=== PATIENT | female | born 1940 | race Caucasian/White ===

== ENCOUNTER 2017-05-07 15:47 | Outpatient (CLI) | payer MEDICARE, BC | END 2017-05-07 15:48 | disposition home or self-care (01) | LOC: BICMAMMO 15:47 | PROVIDERS: ATTEND Family Medicine | DX: Z12.31 Encounter for screening mammogram for malignant neoplasm of breast (principal) | CPT/HCPCS: 77063; 77067 ==

== ENCOUNTER 2017-07-24 01:28 | Observation (INO) | payer MEDICARE, BC ==
[2017-07-24] MEDS ORDERED: Nitroglycerin 0.4 MG TAB (25 Tab Bottle) ONE ×3 (01:46→01:48)
[2017-07-24] MEDS ORDERED: Nitroglycerin 2% Ointment 1 INCH/1 GM Packet ONE (01:46)
[2017-07-24 01:58] LABS: #Eosinphils 0.1 thou/uL (0.0-0.7); #Lymphocytes 2.4 thou/uL (1.20-3.40); #Monocytes 0.6 thou/uL (0.11-0.59); #Neutrophils 7.3 thou/uL (1.40-6.50); %Basophils 0.3 % (0.0-1.0); %Eosinophils 1.3 % (0.0-10.0); %Monocytes 5.6 % (0.0-10.0); %Neutrophils 69.8 % (42.0-75.0); Hemoglobin 14.6 g/dL (12.0-16.0); Mean Corpuscular HGB CONC 33.5 g/dL (32.0-36.0); Mean Corpuscular Hemoglobin 31.5 pg (27.0-31.0); Mean Corpuscular Volume 94.1 fl (81.0-99.0); Mean Platelet Volume 7.1 fL (7.4-10.4); Platelet Count 228 thou/uL (130-400); RBC Distribution Width 11.7 % (11.5-14.5); Red Blood Cell (RBC) Count 4.63 mill/uL (4.20-5.40); White Blood Cell (WBC) Count 10.4 thou/uL (4.8-10.8)
[2017-07-24 02:17] LABS: ALT (SGPT) 16 U/L (8-55); AST (SGOT) 25 U/L (5-34); Albumin 4.5 g/dL (3.4-4.8); Alkaline Phosphatase 56 U/L (40-150); Anion Gap 13 mmol/L (10-20); BUN (Urea Nitrogen) 23 mg/dL (9.8-20.1); Bilirubin, Total 0.8 mg/dL (0.2-1.2); CK (CPK) 106 U/L (29-168); Calc. Creatinine Clearance 0 mL/min (70-130); Calcium 10.2 mg/dL (7.8-10.44); Carbon Dioxide 25 mmol/L (23-31); Chloride 102 mmol/L (98-107); Estimated GFR-MDRD 58; Globulin 3.3 g/dL (2.4-3.5); Glucose 111 mg/dL (83-110); Lipase 56 U/L (8-78); Potassium 4.1 mmol/L (3.5-5.1); Protein, Total 7.8 g/dL (6.0-8.3); Sodium 136 mmol/L (136-145)
[2017-07-24 02:20] LABS: CKMB 2.6 ng/mL (0-6.6); Troponin I Less than 0.010 ng/mL (< 0.028)
[2017-07-24] MEDS ORDERED: Acetaminophen 325 MG TAB PO PRN (03:21)
[2017-07-24] MEDS ORDERED: hydrALAZINE 20 MG/ML VIAL SLOW IVP PRN ×2 (03:22→03:50)
[2017-07-24 03:50] VITALS: TEMP 98
[2017-07-24] MEDS ORDERED: Ondansetron HCl/PF 4 MG/2 ML Vial IVP PRN (03:50)
[2017-07-24] MEDS ORDERED: cloNIDine 0.1 MG TAB PO PRN (03:50)
[2017-07-24] MEDS ORDERED: Acetaminophen 500 MG TAB PO PRN (03:50)
[2017-07-24] MEDS ORDERED: Ondansetron ODT 4 MG TAB PO PRN (03:50)
[2017-07-24 05:37] LABS: Troponin I Less than 0.010 ng/mL (< 0.028)
--- NOTE | 2017-07-24 05:58 | HP ---
DATE OF ADMISSION: 07/24/2017 PRIMARY CARE PROVIDER: Wilber Washington M.D. CHIEF COMPLAINT: Chest pain and high blood pressure. HISTORY OF PRESENT ILLNESS: This is a 76-year-old female who presents to [facility] complaining of elevated blood pressure with readings at home in the 200/115. The pa columba states she took her regular chronic blood pressure regimen, but noticed increased chest pressur e and elevated blood pressure readings on her home monitor. The patient admits to increase stressors , taking care of an elderly [id number] as well as assisting her brother who recently was placed on dialysis. The patient admits to recent cold and allergy type symptoms taking Kaylie as well as her nasal steroid. The patient denied any specific fever, chills, or exposure history. The patient den ied any lower extremity edema, jaw or left arm discomfort. The patient does states she underwent car diac catheterization within the last 2 years and was told this was negative. The patient states she took 2 aspirin at approximately 2100 on 07/23/2017 before presenting to the emergency department. Th e patient initially rated the pain as 3/10, currently 1/10. The patient was treated in the emergency room with IV metoprolol, sublingual nitroglycerin and transdermal nitroglycerin. Screening metaboli c survey was essentially negative and the patient was referred to the observation unit for further ev aluation. PAST MEDICAL HISTORY: 1. Hypertension. 2. Hyperlipidemia. 3. Gastroesophageal reflux disease. 4. Osteoarthritis. 5. Allergic rhinitis. 6. History of psoriasis. PAST SURGICAL HISTORY: 1. Status post hysterectomy. 2. Status post appendectomy. 3. Status post cardiac catheterization x3 negative. 4. Status post colonoscopy. 5. Status post right total knee arthroplasty in 2010. 6. Status post left total knee arthroplasty. 7. Status post cataract removal. 8. Status post right shoulder repair. CURRENT MEDICATIONS: 1. Aspirin 81 mg p.o. every other day. 2. Vitamin D3 1000 units p.o. daily. 3. Premarin 0.3 mg p.o. daily. 4. Zetia 10 mg p.o. daily. 5. Gabapentin 300 mg p.o. at bedtime. 6. Losartan 25 mg p.o. q.a.m. 7. Coenzyme Q10 100 mg p.o. daily. 8. Protonix 40 mg p.o. q.a.m. ALLERGIES: CODEINE and IODINE CONTRAST. FAMILY HISTORY: Father after complications of emphysema. Mother after complicatio ns of myocardial infarction and CVA. SOCIAL HISTORY: The patient is , resides in [place], [place]. Retired. No current alc ohol, tobacco or illicit drug use. Functional of all activities of daily living. REVIEW OF SYSTEMS: The following complete review of systems was negative, unless otherwise mentioned in the HPI or below: Constitutional: Weight loss or gain, ability to conduct usual activities. Sk in: Rash, itching. Eyes: Double vision, pain. ENT/Mouth: Nose bleeding, neck stiffness, pain, ten derness. Cardiovascular: Palpitations, dyspnea on exertion, orthopnea. Respiratory: Shortness of breath, wheezing, cough, hemoptysis, fever or night sweats. Gastrointestinal: Poor appetite, abdomi nal pain, heartburn, nausea, vomiting, constipation, or diarrhea. Genitourinary: Urgency, frequency , dysuria, nocturia. Musculoskeletal: Pain, swelling. Neurologic/Psychiatric: Anxiety, depression . Allergy/Immunologic: Skin rash, bleeding tendency. Otherwise negative except as stated per HPI. PHYSICAL EXAMINATION: VITAL SIGNS: On admission, blood pressure 203/119, pulse 85, respiratory rate 19, temperature 97.4 d egrees Fahrenheit, O2 saturation 98% on room air. GENERAL APPEARANCE: This is a 76-year-old female, alert and oriented x3, pleasant, convers ant, smiling, in no acute distress. HEENT: Pupils are equal, round, and reactive to light and accommodation. Extraocular muscles are in tact. No scleral icterus, no conjunctival injection. Nares patent. OP is clear. Teeth in good rep air. NECK: Supple, no cervical adenopathy, no thyromegaly, no carotid bruits, no JVD appreciated. Cervic al spine with full active and passive range of motion. No meningeal signs appreciated. CHEST: Lungs are clear to auscultation bilaterally. CARDIOVASCULAR: S1, S2, without noted murmur, rub or gallop. ABDOMEN: Rounded, soft, nontender, nondistended. Bowel sounds are positive in all four quadrants. There is no hepatosplenomegaly, no abdominal bruits, no rebound or guarding appreciated. EXTREMITIES: Warm and dry with fair turgor. No clubbing, cyanosis or asymmetric edema appreciated. Pulses palpable distally at the dorsalis pedis, posterior tibial, and popliteal arteries bilaterally . Capillary refill less than 2 seconds. NEUROLOGIC: Cranial nerves II-XII are grossly intact. No focal or lateralizing signs appreciated. PERTINENT LABORATORY AND X-RAY FINDINGS: Sodium 136, potassium 4.1, chloride 102, CO2 of 25, BUN 23, creatinine 0.94, estimated GFR of 58, glucose 111, calcium 10.2. LFTs within normal limits. BNP 42 , troponin I negative x1. Lipase 56. CBC within normal limits. Portable chest x-ray dated 07/25/19 18 by my interpretation shows no acute cardiopulmonary process. EKG dated by my interpretation shows sinus mechanism with heart rate in the 80s. Normal R-wave progression noted in the precordial leads . Left axis deviation. Isolated T-wave changes in V2 and V3. ASSESSMENT AND PLAN: 1. Hypertensive urgency. The patient was placed in observation status on telemetry unit. We will r esume home antihypertensive regimen and monitor serial blood pressure trend. Hydralazine and clonidi ne p.r.n. systolic greater than or equal to 170. The patient may need additional titration of her an tihypertensive regimen on an ongoing basis after discharge. 2. Chest pain. Suspect secondarily to hypertensive urgency. Continue serial troponin I q.3 hours x 2. The patient with 3 prior cardiac catheterizations all negative. We will not pursue further stres s testing. Continue aspirin 325 mg daily. 3. Chronic kidney disease stage 3. Avoid nephrotoxic agents and contrast media. Repeat creatinine in the a.m. 4. Gastroesophageal reflux. Continue Protonix 40 mg p.o. daily. 5. Prophylaxis. Sequential compression devices while in bed. Protonix 40 mg p.o. daily. 6. Code status is FULL. Surrogate medical decision maker is the patient's daughter.
[2017-07-24] MEDS ORDERED: Nitroglycerin 2% Ointment 1 INCH/1 GM Packet TOP SCH (06:00)
[2017-07-24 07:54] LABS: Troponin I Less than 0.010 ng/mL (< 0.028)
--- NOTE | 2017-07-24 07:57 | RAD ---
CHEST 1 VIEW: Date: 07/24/17 HISTORY: Chest pain. COMPARISON: Chest radiograph dated 07/30/16. FINDINGS: Heart size upper limits of normal. No focal air space consolidation, pneumothorax, or effusion. There is a right humeral tendon suture anchor, which is displaced, in the subacromial space. IMPRESSION: 1. No acute intrathoracic abnormality. 2. Displaced right humeral tendon suture anchor indicating hardware failure. Orthopedic follow-up re commended. POS: [facility]
[2017-07-24 08:12] VITALS: BP 138/76
[2017-07-24] MEDS ORDERED: Famotidine 20 MG TAB PO SCH (09:00)
[2017-07-24] MEDS ORDERED: Losartan 25 MG TAB PO SCH (09:00)
[2017-07-24] MEDS ORDERED: ASCORBIC ACID PO SCH (09:00)
[2017-07-24] MEDS ORDERED: Aspirin 325 MG TAB PO SCH ×2 (09:00)
[2017-07-24] MEDS ORDERED: Calcium Carbonate + Vit D 1 TAB PO SCH (09:00)
[2017-07-24] MEDS ORDERED: Lactinex Tablet PO SCH (09:00)
[2017-07-24] MEDS ORDERED: Ubidecarenone 50 MG CAP PO SCH (09:00)
[2017-07-24] MEDS ORDERED: Estrogens, Conjugated 0.3 MG TAB PO SCH (09:00)
[2017-07-24] MEDS ORDERED: CRANBERRY PO SCH (09:00)
[2017-07-24] MEDS ORDERED: Ezetimibe 10 MG TAB PO SCH (09:00)
[2017-07-24] MEDS ORDERED: ALPRAZolam 0.25 MG TAB PO SCH (10:45)
--- NOTE | 2017-07-24 12:50 | DIS ---
CONDITION AT THE TIME OF DISCHARGE: Stable and improved. PRIMARY CARE PHYSICIAN: Dr. Wilber Washington DISCHARGE DIAGNOSES: 1. Hypertensive urgency, now resolved. 2. Anxiety. 3. History of hypertension. 4. Dyslipidemia. 5. Gastroesophageal reflux disease. 6. Osteoarthritis. 7. History of psoriasis. DISCHARGE MEDICATIONS: Remain the same as admission medication. Please see admission history for de tails. No medication changes were needed at this time. Blood pressure medications remained the same with losartan 25 mg daily. PROCEDURES DONE IN THE HOSPITAL: Chest x-ray which is negative for any fluid or effusion or infiltra te. HISTORY OF PRESENT ILLNESS: Ms. Woody is a pleasant 76-year-old female with past medical history of hypertension who was admitted overnight for complaints of high blood pressure readings in 200 systol ic and 100-teens diastolic at home. She was otherwise stable on a small dose of Cozaar at home. She did report that she was under a lot of stress lately, but otherwise her blood pressure is very well controlled. She had some associated chest discomfort with this blood pressure being so high. She wa s evaluated and was admitted overnight for observation. Please see admission history and physical fo r further details. HOSPITAL COURSE: The patient's blood pressure actually did very well without any additional interven tions. She was restarted on her Cozaar and her blood pressure was within normal limits throughout th e rest of her hospitalization. Serial cardiac enzymes were done and were unremarkable. The patient follows up with Dr. Robledo as an outpatient and has a normal cardiac catheterization a few years ago. At this time, most of her symptoms are stemming from extreme anxiety and stress. She will be start ed on a Xanax trial as needed basis and will be followed up by primary care physician to see if that helps with her day to day symptoms. She is encouraged to keep a blood pressure log at home as well. At this time, there is no further need for continued hospital stay and she is discharged back home. She was seen and examined prior to discharge and is feeding very good and has no new complaints. PHYSICAL EXAMINATION: (This morning). VITAL SIGNS: Temperature 98, heart rate 72, respirations 20, saturating 93% on room air, blood press ure 138/76. GENERAL: No acute distress. She does appear somewhat anxious, otherwise awake, alert, oriented x3. CHEST: Clear to auscultation without any wheezing, rales or rhonchi. Rhythm is regular without any murmur, rubs or gallops. NEUROLOGICAL: Nonfocal. She is instructed to follow with primary care physician in 5-7 days.
[2017-07-24] MEDS ORDERED: Gabapentin 300 MG CAP PO SCH (21:00)
== END 2017-07-24 12:01 | disposition home or self-care (01) ==
LOC: ERS 01:28 → 2SW 02:23
PROVIDERS: ADMIT Family Medicine; ATTEND Family Medicine
DX: I16.0 Hypertensive urgency (principal); R07.9 Chest pain, unspecified; F41.9 Anxiety disorder, unspecified; I10 Essential (primary) hypertension; E78.5 Hyperlipidemia, unspecified; K21.9 Gastro-esophageal reflux disease without esophagitis; M19.90 Unspecified osteoarthritis, unspecified site; L40.9 Psoriasis, unspecified; J30.9 Allergic rhinitis, unspecified; Z88.2 Allergy status to sulfonamides; Z88.5 Allergy status to narcotic agent; Z91.041 Radiographic dye allergy status; Z79.82 Long term (current) use of aspirin; Z79.899 Other long term (current) drug therapy; Z98.890 Other specified postprocedural states; Z82.49 Family history of ischemic heart disease and other diseases of the circulatory system
CPT/HCPCS: 71045; 80053; 82550; 82553; 83690; 83880; 84484 ×2; 85025; 93005; 94760; 99284; G0378; 36415; 96360

== ENCOUNTER 2018-05-19 09:29 | Outpatient (CLI) | payer MEDICARE, BC | END 2018-05-19 09:30 | disposition home or self-care (01) | LOC: BICMAMMO 09:29 | PROVIDERS: ATTEND Family Medicine | DX: Z12.31 Encounter for screening mammogram for malignant neoplasm of breast (principal); R92.1 Mammographic calcification found on diagnostic imaging of breast | CPT/HCPCS: 77063; 77067 ==

== ENCOUNTER 2018-09-27 03:21 | Observation (INO) | payer MEDICARE, BC ==
[2018-09-27 04:11] LABS: #Eosinphils 0.2 thou/uL (0.0-0.7); #Lymphocytes 1.9 thou/uL (1.20-3.40); #Monocytes 0.6 thou/uL (0.11-0.59); #Neutrophils 4.2 thou/uL (1.40-6.50); %Basophils 0.6 % (0.0-1.0); %Eosinophils 3.1 % (0.0-10.0); %Lymphocytes 27.9 % (21.0-51.0); %Neutrophils 60.5 % (42.0-75.0); Hemoglobin 13.9 g/dL (12.0-16.0); Mean Corpuscular HGB CONC 33.7 g/dL (32.0-36.0); Mean Corpuscular Hemoglobin 31.9 pg (27.0-31.0); Mean Corpuscular Volume 94.8 fL (78.0-98.0); Mean Platelet Volume 6.3 fL (7.4-10.4); Platelet Count 248 thou/uL (130-400); RBC Distribution Width 11.5 % (11.5-14.5); Red Blood Cell (RBC) Count 4.35 mill/uL (4.20-5.40); White Blood Cell (WBC) Count 6.9 thou/uL (4.8-10.8)
[2018-09-27 04:35] LABS: ALT (SGPT) 18 U/L (8-55); AST (SGOT) 17 U/L (5-34); Albumin 4.4 g/dL (3.4-4.8); Alkaline Phosphatase 50 U/L (40-150); Anion Gap 12 mmol/L (10-20); BUN (Urea Nitrogen) 24 mg/dL (9.8-20.1); CK (CPK) 91 U/L (29-168); Calc. Creatinine Clearance 0 mL/min (70-130); Calcium 10.3 mg/dL (7.8-10.44); Carbon Dioxide 27 mmol/L (23-31); Chloride 102 mmol/L (98-107); Estimated GFR-MDRD 59; Globulin 2.6 g/dL (2.4-3.5); Glucose 95 mg/dL (83-110); Sodium 137 mmol/L (136-145)
[2018-09-27] MEDS ORDERED: Nitroglycerin 0.4 MG TAB 1 EACH ONE (05:20)
[2018-09-27] MEDS ORDERED: Pantoprazole 40 MG VIAL ONE (05:20)
[2018-09-27] MEDS ORDERED: Aspirin Chewable 81 MG TAB ONE (05:20)
[2018-09-27] MEDS ORDERED: Ondansetron PF 4 MG/2 ML Vial ONE (05:20)
[2018-09-27 07:40] LABS: Troponin I Less than 0.010 ng/mL (< 0.028)
[2018-09-27] MEDS ORDERED: Ondansetron ODT 4 MG TAB PO PRN (08:23)
[2018-09-27] MEDS ORDERED: Ondansetron PF 4 MG/2 ML Vial IVP PRN (08:23)
[2018-09-27] MEDS ORDERED: Acetaminophen 325 MG TAB PO PRN (08:24)
[2018-09-27 08:25] VITALS: BMI 29.0
[2018-09-27] MEDS ORDERED: Aspirin 81 mg Enteric Coated Tablet PO SCH (09:30)
--- NOTE | 2018-09-27 09:44 | RAD ---
CHEST 2 VIEWS: Date: 09/27/18 HISTORY: Chest pain. COMPARISON: 07/30/16 study. FINDINGS: Heart size within normal limits. There are atherosclerotic changes of the aorta. The lungs are clear of infiltrates. Postoperative changes of the right shoulder are noted. One of the screws related to r otator cuff repair have dislodged. IMPRESSION: No acute infiltrative process. POS: [facility]
[2018-09-27] MEDS ORDERED: Lidocaine 2% Viscous Solution 10 ML, Aluminum & Magnesium Hydroxide 30 ML SSW SCH (12:00)
[2018-09-27] MEDS ORDERED: ADENOSINE 60 MG/20 ML VIAL ONE (12:49)
[2018-09-27 13:36] VITALS: BP 178/84; TEMP 98.3
--- NOTE | 2018-09-27 14:17 | NM ---
NUCLEAR MEDICINE CARDIAC STRESS WITH EJECTION FRACTION AND WALL MOTION: HISTORY: Chest pain. COMPARISON: None. TECHNIQUE: The patient was administered 9 mCi of technetium-99m sestamibi for rest imaging and 30.90 mCi of tech netium-99m sestamibi for stress imaging. Cardiac gating is performed. FINDINGS: Homogeneous distribution of the radiotracer in the left ventricle on the attenuation correction image s. No reversibility or fixed defect. TID is 1.50. End-diastolic volume is 58 mL. End-systolic volume is 10 mL. CARDIAC GATING: Appropriate wall motion and wall thickening. Ejection fraction is 84%. IMPRESSION: 1. No evidence of reversibility or fixed defect. 2. 84% ejection fraction. POS: [facility]
[2018-09-27] MEDS ORDERED: Losartan 25 MG TAB PO SCH (14:45)
[2018-09-27] MEDS ORDERED: Gabapentin 300 MG CAP PO SCH (21:00)
--- NOTE | 2018-09-27 21:06 | SS ---
DATE OF ADMISSION: 09/27/2018 DATE OF DISCHARGE: 09/27/2018 CHIEF COMPLAINT: Chest pain. HISTORY OF PRESENT ILLNESS: The patient is a 78-year-old female with past medical history of hypertension and anxiety, who presents to the hospital with complaints of chest pain. The patient states that she has not been feeling well for the past couple of days. However, last night, she woke up around 2:30 a.m., felt very weak and was shaking, started having some tightness to her right chest area, was also nauseated, but denies any diaphoresis and just felt lightheaded, however, was able to ambulate. The patient denies her chest pain radiating to her left or right arm or her jaw. The patient did notice that her blood pressure at that time was elevated, so she got concerned and came into the hospital for further evaluation. The patient also states that she has been under a lot of stress recently. She has had multiple family members, whom she cares for that have been ill and she has been running around taking care of them. PAST MEDICAL HISTORY: 1. Hypertension. 2. Hyperlipidemia. 3. Reflux. 4. Osteoarthritis. 5. Allergic rhinitis. 6. History of psoriasis. PAST SURGICAL HISTORY: She has had a post hysterectomy, appendectomy, cardiac catheterization x3 which were negative, colonoscopy, right total knee arthroplasty in 2010, left total knee arthroplasty, and cataract removed. She has also had a right-sided shoulder repair. CURRENT MEDICATIONS: She takes gabapentin 300 mg at bedtime. She takes Zetia 10 mg daily, aspirin 81 mg daily, pantoprazole 40 mg q.a.m. She is also on probiotic one capsule daily, losartan 25 mg daily, and 0.3 mg p.o. daily. ALLERGIES: SHE IS ALLERGIC TO CODEINE AND CONTRAST. FAMILY HISTORY: Father after complications of emphysema. Mother disease after complication of VT and CVA. SOCIAL HISTORY: She is a . She lives in [place]. She denies any alcohol use, drug use, or smoking history. She is very functioning and is a full code. REVIEW OF SYSTEMS: All negative except for the ones mentioned above in HPI. PHYSICAL EXAMINATION: VITAL SIGNS: As of the following; temperature of 98.3, pulse 82, respirations 16, respirations 97% on room air, and blood pressure 178/84. GENERAL: She is awake, alert, and oriented x3. Does not appear in any distress. CV: S1 and S2 present. No murmurs, rubs, or gallops. ABDOMEN: Soft and nontender. Bowel sounds are present x2. EXTREMITIES: No edema. Pedal pulses are present x2. HEENT: Normocephalic and atraumatic. No lymphadenopathy noted. NEUROVASCULAR: No focal deficits noted. SKIN: No cuts, lesions, or bruises noted. LABORATORY RESULTS: As of the following. The patient's troponin x3 were negative. WBCs of 6.9, hemoglobin of 13.9, hematocrit of 41.2, platelets of 248. Chemistry; sodium of 137, potassium 4.0, BUN of 24, creatinine 0.92. Troponins x3 were negative. TSH was not checked. Her BNP was 28.7. She also had a chest x-ray, which did not indicate any acute abnormalities. ASSESSMENT AND PLAN: The patient is a very pleasant 78-year-old female, who presents to the hospital with complaints of chest pain. 1. Atypical chest pain, most likely secondary to either cardiac reasons versus anxiety versus gastroesophageal reflux disease. The patient does have a significant amount of stress for the past few days and she has had anxiety in the past. I will give her some anxiolytics, and also she needs to follow up with her PCP for further evaluation in terms of maybe low-dose anxiolytic that she needs to take at all the time. I will continue her home medications, and we will do a stress test and if negative, I will discharge her home today. 2. Hypertension. We will continue her home medications. 3. History of hyperlipidemia. We will continue her home medications. 4. Deep venous thrombosis prophylaxis. We will put the patient on some SCDs or Lovenox. Job ID: [id number]
[2018-09-28] MEDS ORDERED: Ezetimibe 10 MG TAB PO SCH (09:00)
[2018-09-28] MEDS ORDERED: Losartan 25 MG TAB PO SCH (09:00)
--- NOTE | 2018-10-04 00:40 | EKG ---
Test Reason : Blood Pressure : / mmHG Vent. Rate : 079 BPM Atrial Rate : 079 BPM P-R Int : 148 ms QRS Dur : 084 ms QT Int : 376 ms P-R-T Axes : 034 -25 008 degrees QTc Int : 431 ms Normal sinus rhythm Minimal voltage criteria for LVH, may be normal variant Confirmed by EDEN CASEY ([id number]), material expeditor FABIÁN MONTERO ([id number]) on 10/04/2018 12:40:15 AM Referred By: Confirmed By:EDEN CASEY
== END 2018-09-27 16:24 | disposition home or self-care (01) ==
LOC: ERS 03:21 → ERHOLD 05:45 → 2SW 08:12
PROVIDERS: ADMIT Internal Medicine; ATTEND Internal Medicine
DX: R07.89 Other chest pain (principal); I10 Essential (primary) hypertension; E78.5 Hyperlipidemia, unspecified; K21.9 Gastro-esophageal reflux disease without esophagitis; M19.90 Unspecified osteoarthritis, unspecified site; J30.9 Allergic rhinitis, unspecified; Z79.82 Long term (current) use of aspirin; Z79.899 Other long term (current) drug therapy; Z88.2 Allergy status to sulfonamides; Z88.5 Allergy status to narcotic agent; Z91.041 Radiographic dye allergy status; Z98.890 Other specified postprocedural states
CPT/HCPCS: 71046; 78452; 80053; 82550; 83880; 84484 ×2; 85025; 93005; 93017; 96361; 96374; 96375; 99285; A9500; G0378 ×2; 36415; C9113; J0153; J2405

== ENCOUNTER 2019-05-21 08:33 | Outpatient (CLI) | payer MEDICARE, BC ==
--- NOTE | 2019-05-21 08:57 | MMO ---
Bilateral MAMMO Bilat Screen [facility]. CLINICAL HISTORY: Patient is 78 years old and is seen for screening. The patient has the following family history of breast cancer: cousin female. The patient has no personal history of cancer. VIEWS: The views performed were: bilateral craniocaudal with tomosynthesis and bilateral mediolateral oblique with tomosynthesis. FILMS COMPARED: The present examination has been compared to prior imaging studies performed at [facility] on 05/07/2017 and 05/19/2018, and at [facility] on 02/27/2015 and 04/04/2016. This study has been interpreted with the assistance of computer-aided detection. MAMMOGRAM FINDINGS: There are scattered fibroglandular densities. There are vascular calcifications seen in both breasts. There are no suspicious masses, suspicious calcifications, or new areas of architectural distortion. IMPRESSION: A ROUTINE FOLLOW-UP MAMMOGRAM IN 1 YEAR IS RECOMMENDED. THE RESULTS OF THIS EXAM WERE SENT TO THE PATIENT. ACR BI-RADS Category 2 - Benign finding MAMMOGRAPHY NOTE: 1. A negative mammogram report should not delay a biopsy if a dominant of clinically suspicious mass is present. 2. Approximately 10% to 15% of breast cancers are not detected by mammography. 3. Adenosis and dense breasts may obscure an underlying neoplasm. Reported by: JIL ALY MD Electonically Signed: [id number]
== END 2019-05-21 08:34 | disposition home or self-care (01) ==
LOC: BICMAMMO 08:33
PROVIDERS: ATTEND Family Medicine
DX: Z12.31 Encounter for screening mammogram for malignant neoplasm of breast (principal); Z80.3 Family history of malignant neoplasm of breast
CPT/HCPCS: 77063; 77067

== ENCOUNTER 2020-05-31 09:57 | Outpatient (CLI) | payer MEDICARE, BC ==
--- NOTE | 2020-05-31 10:47 | MMO ---
Bilateral MAMMO Bilat Screen [facility]. CLINICAL HISTORY: Patient is 79 years old and is seen for screening. The patient has the following family history of breast cancer: female cousin. The patient has no personal history of cancer. VIEWS: The views performed were: bilateral craniocaudal with tomosynthesis and bilateral mediolateral oblique with tomosynthesis. FILMS COMPARED: The present examination has been compared to prior imaging studies performed at [facility] on 05/07/2017, 05/19/2018 and 05/21/2019, and at [facility] on 04/04/2016. This study has been interpreted with the assistance of computer-aided detection. MAMMOGRAM FINDINGS: There are scattered fibroglandular densities. There are stable benign appearing calcifications seen in both breasts. There are also vascular calcifications. There are no suspicious masses, suspicious calcifications, or new areas of architectural distortion. IMPRESSION: A ROUTINE FOLLOW-UP MAMMOGRAM IN 1 YEAR IS RECOMMENDED. THE RESULTS OF THIS EXAM WERE SENT TO THE PATIENT. ACR BI-RADS Category 2 - Benign finding MAMMOGRAPHY NOTE: 1. A negative mammogram report should not delay a biopsy if a dominant of clinically suspicious mass is present. 2. Approximately 10% to 15% of breast cancers are not detected by mammography. 3. Adenosis and dense breasts may obscure an underlying neoplasm. Reported by: JIL ALY MD Electonically Signed: [id number]
== END 2020-05-31 09:58 | disposition home or self-care (01) ==
LOC: BICMAMMO 09:57
DX: Z12.31 Encounter for screening mammogram for malignant neoplasm of breast (principal); Z80.3 Family history of malignant neoplasm of breast
CPT/HCPCS: 77063; 77067

== ENCOUNTER 2021-07-09 09:54 | Outpatient (CLI) | payer MEDICARE, BC | END 2021-07-09 09:55 | disposition home or self-care (01) | LOC: BICMAMMO 09:54 | PROVIDERS: ATTEND Family Medicine | DX: Z12.31 Encounter for screening mammogram for malignant neoplasm of breast (principal); Z80.3 Family history of malignant neoplasm of breast | CPT/HCPCS: 77063; 77067 ==

== ENCOUNTER 2023-01-05 05:06 | Observation (INO) | payer MEDICARE, BC ==
[2023-01-05 05:33] LABS: #Basophils 0.1 thou/uL (0.0-0.2); #Eosinphils 0.1 thou/uL (0.0-0.7); #Monocytes 0.5 thou/uL (0.11-0.59); #Neutrophils 3.6 thou/uL (1.40-6.50); %Basophils 0.8 % (0.0-1.0); %Eosinophils 2.2 % (0.0-10.0); %Lymphocytes 31.8 % (21.0-51.0); %Neutrophils 56.9 % (42.0-75.0); Hemoglobin 13.8 g/dL (12.0-16.0); Mean Corpuscular HGB CONC 33.7 g/dL (32.0-36.0); Mean Corpuscular Hemoglobin 31.5 pg (27.0-31.0); Mean Corpuscular Volume 93.6 fl (78.0-98.0); Mean Platelet Volume 8.8 fL (7.4-10.4); Platelet Count 213 10x3/uL (130-400); RBC Distribution Width 12.1 % (11.5-14.5); Red Blood Cell (RBC) Count 4.38 mill/uL (4.20-5.40); White Blood Cell (WBC) Count 6.4 10x3/uL (4.8-10.8)
[2023-01-05 05:59] LABS: ALT (SGPT) 15 U/L (8-55); AST (SGOT) 18 U/L (5-34); Albumin 4.4 g/dL (3.4-4.8); Alkaline Phosphatase 45 U/L (40-110); Anion Gap 14 mmol/L (10-20); BUN (Urea Nitrogen) 17 mg/dL (9.8-20.1); Bilirubin, Total 1.1 mg/dL (0.2-1.2); Calc. Creatinine Clearance 0 mL/min (70-130); Calcium 9.8 mg/dL (7.8-10.44); Carbon Dioxide 26 mmol/L (23-31); Chloride 104 mmol/L (98-107); Estimated GFR 57; Globulin 2.9 g/dL (2.4-3.5); Glucose 93 mg/dL (83-110); Potassium 3.5 mmol/L (3.5-5.1); Protein, Total 7.3 g/dL (5.8-8.1); Sodium 140 mmol/L (136-145)
[2023-01-05 06:03] LABS: Troponin I Less than 0.010 ng/mL (< 0.028)
[2023-01-05] MEDS ORDERED: Ondansetron PF 4 MG/2 ML Vial ONE (07:17)
[2023-01-05] MEDS ORDERED: Aspirin Chewable 81 MG TAB ONE (07:17)
[2023-01-05] MEDS ORDERED: ALPRAZolam 0.25 MG TAB PO PRN (07:28)
[2023-01-05] MEDS ORDERED: ALPRAZolam 0.5 MG TAB PO SCH (07:30)
[2023-01-05] MEDS ORDERED: hydrALAZINE 20 MG/ML VIAL SLOW IVP PRN (07:32)
[2023-01-05] MEDS ORDERED: Losartan 25 MG TAB PO SCH ×2 (09:00)
[2023-01-05] MEDS ORDERED: Propranolol HCl 20 MG TAB PO SCH ×2 (09:00→10:32)
[2023-01-05] MEDS ORDERED: Propranolol 40 MG TAB PO SCH (09:00)
[2023-01-05 09:05] LABS: Troponin I Less than 0.010 ng/mL (< 0.028)
[2023-01-05 09:23] VITALS: BMI 28.5
[2023-01-05] MEDS: Acetaminophen 325 MG TAB PO PRN ×2 (09:55→17:51)
[2023-01-05] MEDS ORDERED: Propranolol 10 MG TAB PO SCH (10:45)
[2023-01-05 11:52] LABS: Troponin I Less than 0.010 ng/mL (< 0.028)
[2023-01-05] MEDS ORDERED: NIFEdipine XL 30 MG ER.TAB PO SCH (13:45)
[2023-01-05] MEDS ORDERED: Spironolactone 25 MG TAB PO SCH (13:45)
[2023-01-05] MEDS: Propranolol 10 MG TAB PO SCH (20:42)
[2023-01-05] MEDS: Losartan 25 MG TAB PO SCH (20:43)
[2023-01-05] MEDS ORDERED: Gabapentin 300 MG CAP PO SCH (21:00)
[2023-01-06 05:18] LABS: #Basophils 0.1 thou/uL (0.0-0.2); #Eosinphils 0.2 thou/uL (0.0-0.7); #Monocytes 0.6 thou/uL (0.11-0.59); #Neutrophils 4.5 thou/uL (1.40-6.50); %Basophils 0.9 % (0.0-1.0); %Eosinophils 2.9 % (0.0-10.0); %Lymphocytes 22.8 % (21.0-51.0); %Monocytes 9.1 % (0.0-10.0); %Neutrophils 64.2 % (42.0-75.0); Hematocrit 38.8 % (36.0-47.0); Mean Corpuscular HGB CONC 33.5 g/dL (32.0-36.0); Mean Corpuscular Hemoglobin 31.6 pg (27.0-31.0); Mean Corpuscular Volume 94.4 fl (78.0-98.0); Platelet Count 202 10x3/uL (130-400); RBC Distribution Width 12.4 % (11.5-14.5); Red Blood Cell (RBC) Count 4.11 mill/uL (4.20-5.40); White Blood Cell (WBC) Count 6.9 10x3/uL (4.8-10.8)
[2023-01-06 05:42] LABS: Anion Gap 15 mmol/L (10-20); BUN (Urea Nitrogen) 19 mg/dL (9.8-20.1); Calc. Creatinine Clearance 53 mL/min (70-130); Calcium 9.4 mg/dL (7.8-10.44); Carbon Dioxide 24 mmol/L (23-31); Chloride 106 mmol/L (98-107); Estimated GFR 59; Glucose 89 mg/dL (83-110); Potassium 3.6 mmol/L (3.5-5.1); Sodium 141 mmol/L (136-145)
[2023-01-06] MEDS ORDERED: Spironolactone 25 MG TAB PO SCH (08:00)
[2023-01-06] MEDS ORDERED: Cholecalciferol 1,000 UNITS (25 MCG) TAB PO SCH (09:00)
[2023-01-06] MEDS ORDERED: CO Q-10 CAPSULE 100 MG PO SCH (09:00)
[2023-01-06] MEDS ORDERED: Estrogens, Conjugated 0.3 MG TAB PO SCH (09:00)
[2023-01-06] MEDS ORDERED: CRANBERRY PLUS VITAMIN C SFTGL PO SCH (09:00)
[2023-01-06] MEDS ORDERED: NIFEdipine XL 30 MG ER.TAB PO SCH (09:00)
[2023-01-06] MEDS ORDERED: CHOLECALCIFEROL 1000 UNIT PO SCH (09:00)
[2023-01-06] MEDS ORDERED: Calcium Carbonate 600 MG TAB PO SCH (09:00)
[2023-01-06] MEDS ORDERED: Ezetimibe 10 MG TAB PO SCH (09:00)
[2023-01-06] MEDS ORDERED: UBIDECARENONE 100 MG PO SCH (09:00)
[2023-01-06] MEDS: Losartan 25 MG TAB PO SCH (10:30)
[2023-01-06] MEDS: Propranolol 10 MG TAB PO SCH (10:31)
[2023-01-06] MEDS ORDERED: Fluticasone Propionate Nasal Spray 16 gm Bottle NASAL SCH (12:45)
[2023-01-06] MEDS: Acetaminophen 325 MG TAB PO PRN (13:54)
[2023-01-06 15:59] VITALS: BP 145/74; TEMP 98.4
[2023-01-08] MEDS ORDERED: Aspirin 81 mg Enteric Coated Tablet PO SCH (09:00)
== END 2023-01-06 16:58 | disposition home or self-care (01) ==
LOC: ERS 05:06 → 2SW 07:01
PROVIDERS: ADMIT Student in an Organized Health Care Education/Training Program; ATTEND Internal Medicine
DX: I10 Essential (primary) hypertension (principal); R07.89 Other chest pain; R51.9 Headache, unspecified; R42 Dizziness and giddiness; E78.5 Hyperlipidemia, unspecified; F41.9 Anxiety disorder, unspecified; M19.90 Unspecified osteoarthritis, unspecified site; Z96.652 Presence of left artificial knee joint; Z90.49 Acquired absence of other specified parts of digestive tract; Z90.710 Acquired absence of both cervix and uterus; Z88.5 Allergy status to narcotic agent; Z91.040 Latex allergy status; Z88.2 Allergy status to sulfonamides; Z79.82 Long term (current) use of aspirin; Z79.899 Other long term (current) drug therapy
CPT/HCPCS: 70450; 71045; 80048; 80053; 84443; 84484 ×2; 85025 ×2; 93005; 96374; 99285; J0360; 36415; 96375; G0378; J2405

== ENCOUNTER 2024-02-09 08:12 | Outpatient (CLI) | payer MEDICARE | END 2024-02-09 08:13 | disposition home or self-care (01) | LOC: BICMAMMO 08:12 | PROVIDERS: ATTEND Family Medicine | DX: Z12.31 Encounter for screening mammogram for malignant neoplasm of breast (principal); Z78.0 Asymptomatic menopausal state; M85.851 Other specified disorders of bone density and structure, right thigh; M85.852 Other specified disorders of bone density and structure, left thigh; Z80.3 Family history of malignant neoplasm of breast | CPT/HCPCS: 77063; 77067; 77080 ==

== ENCOUNTER 2025-02-10 10:03 | Outpatient (CLI) | payer MEDICARE | END 2025-02-10 10:04 | disposition home or self-care (01) | LOC: BICMAMMO 10:03 | PROVIDERS: ATTEND Family Medicine | DX: Z12.31 Encounter for screening mammogram for malignant neoplasm of breast (principal); Z80.3 Family history of malignant neoplasm of breast | CPT/HCPCS: 77063; 77067 ==